=== PATIENT | female | born 1980 | race Caucasian/White ===

== ENCOUNTER 2018-03-07 08:30 | Inpatient (IN) | payer OTHER ==
[~2018-03-07] VITALS: Ht 167.6 cm; Wt 2.7 kg
[2018-03-10] MEDS ORDERED: PRENATAL TABLE1 EAC1 PO (08:34)
[2018-03-13] MEDS ORDERED: MIRALAX17 GM PO (12:37)
[2018-03-13] MEDS ORDERED: OXYC1TAB9 PO (12:37)
== END 2018-03-13 13:28 | DRG 766 ==
LOC: O/R 03-10 06:39 → OB/GYN 03-10 08:30
PROVIDERS: Obstetrics & Gynecology
PROC: 0UL70ZZ Occlusion of Bilateral Fallopian Tubes, Open Approach (ICD-10-PCS; 2018-03-10)
PROC: 4A1HXCZ Monitoring of Products of Conception, Cardiac Rate, External Approach (ICD-10-PCS; 2018-03-10)
PROC: 10D00Z1 Extraction of Products of Conception, Low, Open Approach (ICD-10-PCS; principal; 2018-03-10 08:30)
DX: O82 Encounter for cesarean delivery without indication (principal); Z3A.39 39 weeks gestation of pregnancy; Z37.0 Single live birth; Z30.2 Encounter for sterilization